=== PATIENT | male | born 1995 | race Caucasian/White ===

== ENCOUNTER 2021-03-26 15:09 | Emergency (ER) | payer SELFPAY ==
[~2021-03-26] VITALS: Ht 162.6 cm; Wt 54.4 kg
[2021-03-26 15:09] VITALS: BP 150/100
--- NOTE | 2021-03-26 15:09 | NUR ---
Patient ambulated with steady gait to bed 4.
[2021-03-26] MEDS ORDERED: LIDOCAINE MPF 1% 10 MG/ML VIAL INJ ONE (15:30)
[2021-03-26] MEDS ORDERED: KETOROLAC 30 MG/ML VIAL IM ONE (15:30)
--- NOTE | 2021-03-26 15:35 | NUR ---
25 YEARS OLD MALE ALERT, ORIENTED X4 PRESENTS TO ER WITH LEFT HAND LACERATION.
[2021-03-26] MEDS ORDERED: BACITRACIN OINT 500 UNITS/GM PKT TP ONE (16:52)
[2021-03-26] MEDS ORDERED: BACI1PAC6 TP (16:56)
[2021-03-26] MEDS ORDERED: ACET-8386 PO (16:56)
[2021-03-26] MEDS ORDERED: CEPH-588 PO (16:56)
[2021-03-26] MEDS ORDERED: IBUP-2213 PO (16:56)
--- NOTE | 2021-03-26 17:20 | NUR ---
patient's wound on left hand (1st, 3rd, 4th and 5th fingers) was dressed with bacitracin, nonadherent dressing and gauze roll. Fingers were then splinted with finger splints. ER JONA notified and approved dressing/splints.
[2021-03-26 17:27] VITALS: BP 130/80
--- NOTE | 2021-03-26 17:28 | NUR ---
PATIENT CONDITION STABLE D/C HOME WITH INSTRUCTIONS AFTER CARE REVIEWED UNDERSTOOD LEFT ER AMBULATORY WITH STEADY GAIT.
== END 2021-03-26 17:28 | disposition home or self-care (01) ==
LOC: MED 15:09
DX: S61.012A Laceration without foreign body of left thumb without damage to nail, initial encounter (principal); S61.213A Laceration without foreign body of left middle finger without damage to nail, initial encounter; S61.215A Laceration without foreign body of left ring finger without damage to nail, initial encounter; S61.217A Laceration without foreign body of left little finger without damage to nail, initial encounter; W26.0XXA Contact with knife, initial encounter; Y93.89 Activity, other specified; Y92.89 Other specified places as the place of occurrence of the external cause; Y99.8 Other external cause status
CPT/HCPCS: 12004; 73130; 90471; 90715; 96372; 99284; J1885; J2001; Q0092